=== PATIENT | female | born 1975 | race Caucasian/White ===

== ENCOUNTER 2016-11-11 17:57 | Inpatient (IN) | payer OTHER ==
[2016-11-11] MEDS ORDERED: IOPAMIDOL 370 (76%) 100 ML VIAL IV ONE (17:58)
[2016-11-11 19:33] LABS: ABSOLUTE NEUTROPHIL COUNT 5.4 K/mm3 (1.8-7.7); BASO # 0.1 K/mm3 (0.0-0.2); EOS # 0.6 (0.0-0.5); HEMATOCRIT 34.6 % (37.0-47.0); HEMOGLOBIN 11.2 gm/l (12.0-16.0); IMM NEUT% 0.4 % (0-1); LYMPH # 3.1 (1.0-4.8); LYMPH % 31.8 % (15-45); MEAN CELL VOLUME 79.4 fl (81.0-99.0); MEAN CORPUSCULAR HEMOGLOBIN 25.7 pg (27.0-31.0); MEAN CORPUSCULAR HGB CONC 32.4 g/dl (33.0-37.0); MEAN PLATELET VOLUME 9.7 fl (7.4-10.4); MONO # 0.6 (0.0-0.8); MONO % 5.7 % (4-12); NEUT % 55.1 % (43-75); PLATELET COUNT 399 K/mm3 (130-400); RED CELL DISTRIBUTION WIDTH 13.4 % (11.5-14.5)
[2016-11-11 19:44] LABS: ALB/GLOB RATIO 1.1 (>1.0); ALBUMIN 3.6 gm/dL (3.5-5.7); CALCIUM 9.3 mg/dL (8.6-10.3)
[2016-11-11 20:11] LABS: URINE BILIRUBIN NEGATIVE (NEGATIVE); URINE BLOOD TRACE (NEGATIVE); URINE GLUCOSE (UA) 3+ (NEGATIVE); URINE LEUKOCYTE ESTERASE TRACE (NEGATIVE); URINE NITRITE NEGATIVE (NEGATIVE); URINE PROTEIN NEGATIVE (NEGATIVE); URINE UROBILINOGEN NORMAL (0-1 mg/dl)
[2016-11-11 20:12] LABS: URINE APPEARANCE HAZY; URINE COLOR YELLOW
[2016-11-11 20:20] LABS: URINE RBC 0 /hpf
[2016-11-11 20:21] LABS: URINE BACTERIA 1+
[2016-11-11 20:40] LABS: ACETONE,SERUM NEGATIVE (NEGATIVE)
[2016-11-11 20:54] LABS: VENOUS BLOOD GAS BASE EXCESS 1.8 mmol/L (-2.0-2.0); VENOUS BLOOD GAS HCO3 26.1 mmol/L (22.0-27.0)
[2016-11-11] MEDS ORDERED: SODIUM CHLORIDE 0.9% 1,000 ML ONE (20:59)
[2016-11-11] MEDS ORDERED: INSULIN REGULAR HUMAN (DOSE) 100 UNITS/1 ML ONE (21:00)
[2016-11-11] MEDS ORDERED: ONDANSETRON 4 MG/2ML 2 ML VIAL ONE (21:13)
[2016-11-11] MEDS ORDERED: HYDROMORPHONE HCL 1 MG/ML SYRINGE ONE ×2 (21:13→23:02)
[2016-11-11] MEDS ORDERED: INSULIN REGULAR HUMAN (DOSE) 100 UNITS in SODIUM CHLORIDE 0.9% 99 ML IV PRN (21:15)
[2016-11-11 21:16] LABS: LIPASE 15 U/L (11-82)
[2016-11-11 23:53] VITALS: BMI 31.0
[2016-11-11] MEDS ORDERED: PNEUMOCOCCAL 23-VAL P-SAC VAC 0.5 ML VIAL IM V ONE (23:57)
[2016-11-11] MEDS ORDERED: FLU VACC 2016-17 (36MO-64Y)/PF 60 MCG/0.5 ML SYRINGE IM V ONE (23:57)
[2016-11-12] MEDS ORDERED: BLISTEX LIPSTICK 1 EACH TP PRN (01:07)
[2016-11-12] MEDS ORDERED: MENTHOL/CETYLPYRD 1 EACH LOZENGE PO PRN (01:07)
[2016-11-12] MEDS ORDERED: MAGNESIUM HYDROXIDE 30 ML UDCUP PO PRN (01:07)
[2016-11-12] MEDS ORDERED: ACETAMINOPHEN 325 MG TABLET PO PRN (01:07)
[2016-11-12] MEDS ORDERED: SODIUM CHLORIDE 0.9% 100 ML IV PRN (01:07)
[2016-11-12] MEDS ORDERED: SODIUM CHLORIDE 0.9% 1,000 ML IV SCH (01:15)
[2016-11-12] MEDS ORDERED: CEFTRIAXONE 1 GRAM DUPLEX 50 ML IV ONE (02:15)
[2016-11-12] MEDS ORDERED: PUMP TUBING ONE (02:17)
[2016-11-12] MEDS: SODIUM CHLOR 0.45%/KCL 20 MEQ 1,000 ML IV SCH ×2 (02:40→12:48)
[2016-11-12] MEDS: CEFTRIAXONE 1 GRAM DUPLEX 1 G in Premix (D5W) 50 ml 1 EACH IV SCH (02:41)
[2016-11-12] MEDS: ENOXAPARIN SODIUM 40 MG/0.4 ML SYRINGE SUB-Q SCH (02:41)
[2016-11-12] MEDS: OXYCODONE HCL 5 MG TABLET PO PRN (02:42)
[2016-11-12] MEDS: GUAIFENESIN 600 MG TABLET.DR PO SCH ×3 (03:24→21:19)
[2016-11-12] MEDS: ONDANSETRON 4 MG/2ML 2 ML VIAL IV PRN (06:42)
--- NOTE | 2016-11-12 06:54 | CT ---
Exam Type: ABD/PELVIS W/ CON Date and Time: 11/11/2016 9:15 PM Clinical information: Recent surgery with failed drainage from the wound. Comparison: 09/14/2016. Procedure: Imaging device: [employer] Aquilion [address] scanner 1 mm axial images were obtained through the abdomen and pelvis. Stacked reconstructed 3, 4 and 5 mm images were photographed in the axial coronal and sagittal planes. No oral contrast was utilized for this examination. 100 ml of Isovue-370 was injected intravenously. Exam: with intravenous contrast. FINDINGS: Lung bases: Minimal bibasilar atelectasis is observed. Liver: the liver is homogeneous with no discrete abnormality visualized. No definite findings of biliary dilatation are observed. Spleen: The spleen is homogeneous and does not appear to be enlarged. Gallbladder: Surgically absent. Pancreas: Normal without enlargement or evidence of adjacent inflammatory changes. Adrenal glands: Normal without enlargement or evidence of adjacent inflammatory changes. Abdominal aorta: The aorta is of normal caliber and appears to be without significant atherosclerotic disease. Kidneys: The kidneys appear to be symmetric in size with no perinephric inflammatory changes are identified. No current findings of hydronephrosis are seen. Bowel structures: There are postsurgical changes with bowel suture seen within the region of the proximal sigmoid colon. Distal to the suture, there is thickening of the colonic wall extending to the patient's rectum. No evidence of obstruction is visualized. There is evidence of infiltration and inflammatory stranding within the central pelvic mesentery which is new since prior examination. No definite focal fluid collection or evidence of free air is visualized. There is what appears to be an abdominal incision site located at the midline with inflammatory stranding observed as well as multiple foci of air. This may reflect wound infection though no discrete fluid collection or abscess is visualized. Appendix: Not well visualized. Bladder: The bladder is of normal contour. No wall thickening or significant distention is observed. Hernia: The central abdominal wall musculature is difficult to evaluate due to the inflammatory stranding present. Adenopathy: No significant enlarged adenopathy is visualized. Osseous structures: No discrete osseous abnormalities are identified. Pelvic structures: No discrete pelvic abnormalities are visualized in this examination. IMPRESSION: 1. Evidence of a midline incision within the abdomen and pelvis with inflammatory stranding and foci of free air within the subcutaneous tissues suggesting inflammation/infection. No focal fluid collection is evident to suggest abscess formation. 2. Postsurgical changes within the pelvis with bowel suture within the region of the proximal sigmoid colon suggesting bowel resection. There is thickening of the distal sigmoid colon and rectum beyond the surgical level suggesting findings of focal colitis. Some inflammatory stranding of the mesenteric fat within the pelvis is also observed though no focal fluid collection or evidence of free air is observed. 3. Prior cholecystectomy. 4. Nonvisualization of the appendix. The findings were called to the emergency room at 2150 hours, 11/11/2016, by [facility] radiology.
[2016-11-12 06:55] LABS: ABSOLUTE NEUTROPHIL COUNT 4.4 K/mm3 (1.8-7.7); BASO # 0.1 K/mm3 (0.0-0.2); BASO % 0.7 % (0.2-1.0); EOS # 0.7 (0.0-0.5); EOS % 7.9 % (0.9-2.9); HEMATOCRIT 30.8 % (37.0-47.0); HEMOGLOBIN 9.8 gm/l (12.0-16.0); IMM NEUT% 0.1 % (0-1); LYMPH # 3.2 (1.0-4.8); LYMPH % 35.7 % (15-45); MEAN CELL VOLUME 80.2 fl (81.0-99.0); MEAN CORPUSCULAR HEMOGLOBIN 25.5 pg (27.0-31.0); MEAN CORPUSCULAR HGB CONC 31.8 g/dl (33.0-37.0); MEAN PLATELET VOLUME 9.8 fl (7.4-10.4); MONO # 0.5 (0.0-0.8); MONO % 5.7 % (4-12); NEUT % 49.9 % (43-75); PLATELET COUNT 323 K/mm3 (130-400); RED CELL DISTRIBUTION WIDTH 13.5 % (11.5-14.5)
[2016-11-12 07:14] LABS: CALCIUM 8.3 mg/dL (8.6-10.3)
[2016-11-12] MEDS: INSULIN ASPART (DOSE) 100 UNITS/1 ML SUB-Q PRN ×4 (09:06→21:40)
[2016-11-12] MEDS: ATORVASTATIN CALCIUM 10 MG TABLET PO SCH (09:53)
[2016-11-12] MEDS: LISINOPRIL 10 MG TABLET PO SCH (09:54)
[2016-11-12] MEDS: ASPIRIN (ENTERIC COATED) 81 MG TABLET.EC PO SCH (09:54)
[2016-11-12] MEDS: DOCUSATE SODIUM 100 MG CAPSULE PO SCH ×2 (09:54→21:20)
[2016-11-12] MEDS: GABAPENTIN 300 MG CAPSULE PO SCH ×3 (09:55→21:19)
[2016-11-12] MEDS ORDERED: SODIUM CHLORIDE 500 IRRIG BOT 500 ML IR ONE (09:58)
--- NOTE | 2016-11-12 13:21 | HP ---
GIGI ODOM [facility] [id number] DATE OF : 1975 DATE OF ADMISSION: 11/12/2016 IDENTIFICATION: Ms. Odom is a 41-year-old followed by Lyndon Montez, nurse practitioner. CHIEF COMPLAINT: Abdominal wound dehiscence. HISTORY OF PRESENT ILLNESS: Ms. Odom has surgery for a colovesical fistula on 10/17/2016. This was done at [facility]. Her postoperative course was complicated by ileus and she did not discharge from [facility] until 11/02/2016. She had seen her surgeon last 11/07/16, and he did open part of the wound to allow a seroma to drain. Then today, during a coughing spell, she had an upper portion of the wound open. There has been some yellowish green drainage with a foul odor, and she has had persistent nausea and vomiting today. She came to the emergency department where she was evaluated and had CT scan which does demonstrate that the wound is only superficial. However, she was markedly hyperglycemic and had evidence of a urinary tract infection, therefore she was referred to the Hospitalist service. Additionally, she reports that she has had cough and chills for about 3 days. Cough is nonproductive. REVIEW OF SYSTEMS: HEENT: No headache, lightheadedness, or loss of consciousness. No problems with ears, eyes, nose, or throat. Respiratory: Nonproductive cough, mild dyspnea. Cardiac: No chest pain, or palpitations. Gastrointestinal: Nausea and vomiting today. No dyspepsia. She was constipated, but got relief with milk of magnesia. No hematochezia, or melena. Genitourinary: She has been having dysuria, slow stream, and urinary frequency. Musculoskeletal: Reports that her legs feel heavy and tried. Constitutional: Chills, but no fever. PAST MEDICAL HISTORY: 1. Diabetes mellitus type 2 with retinopathy. 2. Obesity with body mass index of 31 kg/m2. 3. Diverticulosis with recurrent diverticulitis. PAST SURGICAL HISTORY: 1. Hysterectomy. 2. Appendectomy. 3. Cholecystectomy. 4. Partial colon resection for diverticulosis. 5. Repair of colovesical fistula on 10/17/2016 at [facility]. ALLERGIES: REPORTED TO HYDROCODONE WHICH GAVE HER HIVES. CURRENT MEDICATIONS: 1. Oxycodone 5 mg by mouth every 6 hours. 2. Tramadol 50 mg by mouth every 6 hours. 3. Metformin 500 mg by mouth twice a day. 4. Lisinopril 10 mg by mouth daily. 5. Aspirin 81 mg by mouth daily. 6. Insulin glargine 20 units subcutaneous at bedtime. 7. Gabapentin 300 mg by mouth three times a day. 8. Atorvastatin 20 mg by mouth daily. HABITS: No current, or past tobacco, alcohol or drugs. SOCIAL HISTORY: She is a homemaker. She lives with her and 21 and 22-year-old son's in [place]. FAMILY HISTORY: Significant for diabetes, and coronary artery disease. PHYSICAL EXAMINATION: GENERAL: This is a pleasant middle aged woman. She does not appear in any acute distress. VITAL SIGNS: Temperature is 97.9 degrees Fahrenheit. Pulse is 93. Blood pressure is 127/85. Respiratory rate is 16. Oxygen saturation is 96% on room air. HEENT: Pupils equal, round, and reactive. Extraocular muscles intact. Oropharynx is moist. Dentition in good condition. NECK: No adenopathy. CHEST: Clear to auscultation. HEART: Regular with 2/6 systolic murmur. ABDOMEN: Obese, soft, no tenderness. Bowel sounds are normal. The midline incision has on open area about 3 cm long superior to the umbilicus. There is no erythema induration, or exudate. There is also a punctate opening inferior to the umbilicus with clear discharge. EXTREMITIES: Good peripheral pulses. No clubbing, cyanosis or edema. NEUROLOGIC: Nonfocal, alert, and oriented. LABORATORY DATA: White blood cell count is 9.9 with normal differential, hemoglobin and hematocrit 11.2 and 34.6 with microcytic indices, and platelets 399. Venous blood gas is normal. Sodium is 131, potassium 3.8, chloride 95, C02 of 27, BUN 20, creatinine 0.5, and glucose 498. Urinalysis: Specific gravity of 1.020, 3+ glucose, trace blood, trace leukocyte esterase, 5 to 10 white blood cell count, 1+ bacteria. Culture has been set up. Blood culture was obtained and cultures from the surgical wounds were obtained as well. Those do show rare gram-positive cocci. ASSESSMENT: Ms. Odom is a 41-year-old status post abdominal surgery for colovesical fistula with surgical wound dehiscence. There does not appear to be any infection of the surgical wound. She has underlying diabetes type 2 which is uncontrolled and hyperglycemia may contribute to poor wound healing. She has evidence of an acute urinary tract infection with symptoms and bacteruria, and likely acute viral upper respiratory infection causing the coughing that lead to the wound dehiscence. PLAN: 1. Admit to [facility]. 2. Aggressive IV fluid hydration, and insulin treatment to control blood sugar. 3. Clear liquid diet and advance as tolerated. 4. Intravenous ceftriaxone for urinary tract infection. 5. Mucinex for the cough. 6. FULL CODE status. 7. Venous thromboembolism prophylaxis with subcutaneous enoxaparin. 8. Local wound care for the open surgical wound. ANISHA/collin
[2016-11-12] MEDS ORDERED: INSULIN GLARGINE (DOSE) 100 UNITS/ML UNIT SUB-Q SCH (21:00)
[2016-11-13] MEDS: SODIUM CHLOR 0.45%/KCL 20 MEQ 1,000 ML IV SCH ×2 (00:34→02:06)
[2016-11-13] MEDS ORDERED: CEFTRIAXONE 1 GRAM DUPLEX 50 ML IV ONE (01:58)
[2016-11-13] MEDS: ENOXAPARIN SODIUM 40 MG/0.4 ML SYRINGE SUB-Q SCH (02:06)
[2016-11-13] MEDS: CEFTRIAXONE 1 GRAM DUPLEX 1 G in Premix (D5W) 50 ml 1 EACH IV SCH (02:07)
[2016-11-13 06:50] LABS: CALCIUM 8.7 mg/dL (8.6-10.3)
[2016-11-13] MEDS: INSULIN ASPART (DOSE) 100 UNITS/1 ML SUB-Q PRN ×4 (07:48→21:06)
[2016-11-13] MEDS: ONDANSETRON 4 MG/2ML 2 ML VIAL IV PRN (07:48)
[2016-11-13] MEDS: LISINOPRIL 10 MG TABLET PO SCH ×2 (07:49→09:09)
[2016-11-13] MEDS: OXYCODONE HCL 5 MG TABLET PO PRN ×3 (07:49→23:08)
[2016-11-13] MEDS: DOCUSATE SODIUM 100 MG CAPSULE PO SCH ×2 (09:08→20:58)
[2016-11-13] MEDS: GABAPENTIN 300 MG CAPSULE PO SCH ×3 (09:08→20:56)
[2016-11-13] MEDS: GUAIFENESIN 600 MG TABLET.DR PO SCH ×2 (09:08→20:57)
[2016-11-13] MEDS: ATORVASTATIN CALCIUM 10 MG TABLET PO SCH (09:08)
[2016-11-13] MEDS: ASPIRIN (ENTERIC COATED) 81 MG TABLET.EC PO SCH (09:08)
--- NOTE | 2016-11-13 13:08 | PDOC43 ---
- Subjective Chief Complaint: Surgical wound dehiscence. Pain at site of surgical wound, otherwise no new c/o's. Subjective: Reports Tolerating Diet Well, Reports Adequate Oral Intake, Denies Shortness of Breath, Denies Cough, Denies Chest Pain, Denies Nausea, Denies Vomiting, Denies Fever, Denies Chills - Objective Vital Signs Temperature 98.2 F 11/13/16 07:41 Pulse Rate 88 11/13/16 07:41 Respiratory Rate 18 11/13/16 07:41 Blood Pressure 190/113 11/13/16 07:41 O2 Saturation by Pulse Oximetry 97 11/13/16 07:41 Oxygen Delivery Method Room Air Oxygen Flow Rate 0 Intake and Output 11/12/16 11/13/16 11/14/16 06:59 06:59 06:59 Intake Total 4371 Output Total 1750 Balance 2621 General: Alert, Oriented x3, Cooperative, No Acute Distress HEENT: Atraumatic Lungs: Clear to Auscultation Bilaterally Cardiovascular: Regular Rate and Rhythm Abdomen: Soft, Normal Bowel Sounds, Other (3 cm surgical wound dehiscence at superior aspect of surgical wound. Appears clean and superficial. No surrounding redness/warmth. Abd otherwise soft and NT.), No Rebounding, No Involuntary Guarding Extremities: No Edema Laboratory 11/13/16 05:30 11/13/16 11/13/16 11/13/16 11:56 07:36 05:30 Estimated GFR 245 H POC Capillary Glucose 292 H 313 H 11/12/16 11/12/16 11/12/16 21:13 17:48 13:30 Estimated GFR POC Capillary Glucose 293 H 225 H 217 H Current Medications: Current meds reviewed in EMR. - Problems: Assessment/Plan (1) Surgical wound dehiscence Status: Acute Assessment/Plan: Appears to be superficial by CT and PE. Con't wound care and follow. No N/V, diarrhea, abd pain or other concerning sx since admit. Con't elevated BG's concerning for occult process. Follow closely. (2) Diabetes type 2, uncontrolled Status: Chronic Assessment/Plan: With continued poor control. Increase Lantus. Concern for smoldering infection as etiology in spite of lack of other sx- see above. Will follow closely. (3) URI (upper respiratory infection) Qualifiers: URI type: unspecified viral URI Qualifier Code: (J06.9) Acute upper respiratory infection, unspecified Status: Acute Assessment/Plan: Supportive care. (4) UTI (lower urinary tract infection) Status: Acute Assessment/Plan: Cultures pending. Con't rocephin. (5) Obesity (BMI 30.0-34.9) Status: Chronic Assessment/Plan: Complicating all other dx/tx. VTE Prophylaxis: Lovenox. Disposition: Anticipate d/c home in AM.
[2016-11-13] MEDS ORDERED: INSULIN GLARGINE (DOSE) 100 UNITS/ML UNIT SUB-Q SCH (13:09)
[2016-11-13] MEDS: TRAMADOL HCL 50 MG TABLET PO PRN ×2 (16:43→23:32)
[2016-11-14] MEDS: ENOXAPARIN SODIUM 40 MG/0.4 ML SYRINGE SUB-Q SCH (02:08)
[2016-11-14] MEDS: CEFTRIAXONE 1 GRAM DUPLEX 1 G in Premix (D5W) 50 ml 1 EACH IV SCH (02:08)
[2016-11-14] MEDS: OXYCODONE HCL 5 MG TABLET PO PRN (05:58)
[2016-11-14 06:02] LABS: ABSOLUTE NEUTROPHIL COUNT 3.7 K/mm3 (1.8-7.7); BASO % 0.5 % (0.2-1.0); EOS # 0.8 (0.0-0.5); EOS % 9.1 % (0.9-2.9); HEMATOCRIT 31.5 % (37.0-47.0); IMM NEUT% 0.1 % (0-1); LYMPH # 3.4 (1.0-4.8); LYMPH % 40.1 % (15-45); MEAN CORPUSCULAR HGB CONC 31.7 g/dl (33.0-37.0); MEAN PLATELET VOLUME 9.9 fl (7.4-10.4); MONO # 0.5 (0.0-0.8); MONO % 6.3 % (4-12); NEUT % 43.9 % (43-75); PLATELET COUNT 299 K/mm3 (130-400); RED CELL DISTRIBUTION WIDTH 13.6 % (11.5-14.5)
[2016-11-14 06:48] LABS: CALCIUM 9.6 mg/dL (8.6-10.3)
[2016-11-14] MEDS: INSULIN ASPART (DOSE) 100 UNITS/1 ML SUB-Q PRN (07:06)
[2016-11-14 08:20] VITALS: BP 139/88
[2016-11-14] MEDS: GUAIFENESIN 600 MG TABLET.DR PO SCH (08:24)
[2016-11-14] MEDS: ASPIRIN (ENTERIC COATED) 81 MG TABLET.EC PO SCH (08:24)
[2016-11-14] MEDS: GABAPENTIN 300 MG CAPSULE PO SCH (08:24)
[2016-11-14] MEDS: ATORVASTATIN CALCIUM 10 MG TABLET PO SCH (08:24)
[2016-11-14] MEDS: LISINOPRIL 10 MG TABLET PO SCH (08:25)
[2016-11-14] MEDS: DOCUSATE SODIUM 100 MG CAPSULE PO SCH (08:25)
[2016-11-14] MEDS ORDERED: INSULIN GLARGINE (DOSE) 100 UNITS/ML UNIT SUB-Q SCH (10:06)
--- NOTE | 2016-11-14 12:02 | DS ---
Tanja Odom ADMIT DATE: 11/12/2016 DISCHARGE DATE: 11/14/2016 ADMIT DIAGNOSES: 1. Superficial wound dehiscence. 2. Underlying diabetes mellitus type 2 with poor control, longstanding. 3. Abnormal urinalysis upon admission concerning for urinary tract infection. 4. Viral upper respiratory infection. DISCHARGE DIAGNOSES: 1. Superficial wound dehiscence, this is actually not acute, this was opened on Sunday by her surgeon and was not an acute issue it turns out. 2. Poorly controlled diabetes at poorly controlled baseline. 3. No evidence of urinary tract infection as urine culture did not grow out any pathogens. ADMIT HISTORY AND PHYSICAL: Please see Dr. Whitehead's note for details. Briefly, Ms. Odom is a 41-year-old female who underwent a bowel resection for what turned out to be diverticulitis on 10/17/2016. Her hospitalization turned out to be fairly prolonged and she was not discharged until 10/31/2016. She presented to our emergency room with concern about an acute dehiscence of the wound after coughing. She was admitted to the hospitalist service for conservative care. It turns out, however, that story was not completely accurate. I did discuss her case with the regular surgeon, Dr. Pantoja and she actually has been seen by them twice a week. The wound dehiscence that she complained of is actually not acute as he opened up a seroma on Sunday one day prior to her presentation to our emergency room. She has been seen multiple times in the emergency room up there and at various other hospitals for the same thing it turns out. Dr. Pantoja does not feel that she requires further hospitalization after talking to him. HOSPITAL COURSE: Prior to the above history being obtained, she was admitted to the hospitalist service. She was treated with wound care. Given the holiday weekend it was difficult to get information on her. On the morning of discharge we were finally able to contact her regular surgeon and get the above history. Patient remained stable. She is eating and drinking well. She has had no fevers, no chills. We have elected to discharge her with continued daily wound packing/dressing changes with plans for follow up with Dr. Pantoja as scheduled tomorrow 11/15/2016. DISCHARGE MEDICATIONS: As prior to admit as follows: 1. Aspirin 81 mg by mouth daily. 2. Lipitor 20 mg by mouth daily. 3. Neurontin 300 mg by mouth three times daily. 4. Lantus 20 units subcutaneous daily. 5. Ultram 50 mg by mouth every 6 hours. 6. Lisinopril 10 mg by mouth daily. 7. Metformin 500 mg by mouth twice daily. 8. Oxycodone 5 mg by mouth every 6 hours. DISCHARGE FOLLOW UP: With Dr. Pantoja 11/15/2016 as discussed. JOB: [id number] CC: Dr. Pantoja
== END 2016-11-14 10:50 | disposition home or self-care (01) | DRG 921 ==
LOC: ED 17:57 → MS 22:40
PROVIDERS: ADMIT Family Medicine; ATTEND Family Medicine
DX: T81.31XA Disruption of external operation (surgical) wound, not elsewhere classified, initial encounter (principal); E11.65 Type 2 diabetes mellitus with hyperglycemia; E66.9 Obesity, unspecified; Z68.31 Body mass index [BMI] 31.0-31.9, adult; J06.9 Acute upper respiratory infection, unspecified; Z79.84 Long term (current) use of oral hypoglycemic drugs

== ENCOUNTER 2016-11-20 16:24 | Emergency (ER) | payer OTHER ==
[2016-11-20] MEDS ORDERED: IOPAMIDOL 300 (61%) 150 ML VIAL IV ONE (16:25)
[2016-11-20 21:07] LABS: ALB/GLOB RATIO 1.1 (>1.0); ALBUMIN 3.7 gm/dL (3.5-5.7); CALCIUM 9.5 mg/dL (8.6-10.3)
[2016-11-20 21:12] LABS: ABSOLUTE NEUTROPHIL COUNT 4.9 K/mm3 (1.8-7.7); BASO # 0.1 K/mm3 (0.0-0.2); BASO % 0.8 % (0.2-1.0); EOS # 0.5 (0.0-0.5); EOS % 4.9 % (0.9-2.9); HEMATOCRIT 37.1 % (37.0-47.0); IMM NEUT% 0.3 % (0-1); LYMPH # 3.7 (1.0-4.8); LYMPH % 37.8 % (15-45); MEAN CELL VOLUME 81.4 fl (81.0-99.0); MEAN CORPUSCULAR HEMOGLOBIN 26.3 pg (27.0-31.0); MEAN CORPUSCULAR HGB CONC 32.3 g/dl (33.0-37.0); MEAN PLATELET VOLUME 10.3 fl (7.4-10.4); MONO # 0.6 (0.0-0.8); NEUT % 50.2 % (43-75); PLATELET COUNT 366 K/mm3 (130-400); RED CELL DISTRIBUTION WIDTH 13.6 % (11.5-14.5)
[2016-11-20] MEDS ORDERED: AMOX 875 MG/CLAV 125 MG 1 EACH TABLET ONE (23:51)
--- NOTE | 2016-11-21 08:45 | CT ---
ABD/PELVIS W/ CON COMPARISON: CT abdomen and pelvis 11/11/2016 HISTORY: Cutaneous fistula with drainage. 3 days of fevers, chills, increased foul smelling drainage from her abdominal incision. 3 cm incision from her surgery for diverticulitis 10/17/2016. Past surgical history: Hysterectomy, appendectomy, cholecystectomy. Technique: Intravenous injection 125 mL Isovue 300. Using a [employer] Aquilion [address] scanner, images were obtained from the diaphragm to the floor the pelvis. An automated dose reduction technique was used to minimize patient radiation dose. Dose information: CTDIvol (mGy): 15.80 DLP(mGycm): 865.80 FINDINGS: Lung bases: Normal. Inferior mediastinum and heart: Normal. Liver: Normal. Gallbladder: Cholecystectomy. Bile ducts: Normal. Pancreas: Normal. Spleen: Normal. Adrenal glands: Normal. Kidneys: Normal. Ureters: Normal Urinary bladder: Normal. Uterus and adnexa: Hysterectomy Blood vessels: Normal Lymph nodes: Normal Stomach: Normal Duodenum: Normal Small intestine: Normal Appendix: Appendectomy. Colon: Postoperative changes from partial colectomy at the descending-sigmoid colon junction, without without dehiscence or abscess. Abdominal wall and supporting musculature: Midline surgical incision contains numerous suspended air bubbles Bones: Normal IMPRESSION: Infected surgical wound with numerous suspended air bubbles and by physical exam, purulent material discharge compatible with a superficial wound infection/abscess. No abscess The otherwise normal-appearing surgical site, at the junction of the descending and sigmoid colon. Preliminary report by [facility] radiologist Yakelin Petit MD 11/20/2016 at 21:46
--- NOTE | 2016-11-21 09:48 | RAD ---
EXAMINATION : FISTULA OR SINUS TRACT STUDY HISTORY: Abdominal fistula. COMPARISONS: Prior CT scan of the abdomen and pelvis dated 11/20/2016. A fistulogram was performed. 10 mL's of Isovue 300 was injected into a fistula by Dr. Bhakta AP and lateral plain films were obtained. FINDINGS: Injection of the fistula exhibits contrast extending into the subcutaneous preperitoneal soft tissues. No bowel communication is identified. There is no free intra-abdominal air. Please note intraperitoneal extension is currently not visualized. Please note it cannot be excluded with confidence on this exam. Residual CT contrast is noted within the kidneys and proximal collecting system and bladder. The bowel gas pattern is unremarkable. IMPRESSION: Fistulogram findings as described above. Atif the contrast appears to be within the preperitoneal subcutaneous tissues. No obvious intraperitoneal extension is identified however it cannot be excluded with confidence.
== END 2016-11-21 00:15 | disposition home or self-care (01) ==
LOC: ED 16:24
DX: T81.31XA Disruption of external operation (surgical) wound, not elsewhere classified, initial encounter (principal); S31.159A Open bite of abdominal wall, unspecified quadrant without penetration into peritoneal cavity, initial encounter; L02.211 Cutaneous abscess of abdominal wall; L76.82 Other postprocedural complications of skin and subcutaneous tissue; Y83.8 Other surgical procedures as the cause of abnormal reaction of the patient, or of later complication, without mention of misadventure at the time of the procedure; Y92.9 Unspecified place or not applicable
CPT/HCPCS: 83605; 85025; 87040; 87070 ×2; 80053; 87186 ×2; 76080; 74177; 99284 ×2; A9270; Q9967

== ENCOUNTER 2016-11-22 12:01 | Emergency (ER) | payer OTHER ==
[2016-11-22] MEDS ORDERED: OXYCODONE/ACETAMINOPHEN 5/325 MG TABLET ONE (13:05)
[2016-11-22] MEDS ORDERED: INSULIN REGULAR HUMAN (DOSE) 100 UNITS/1 ML ONE (13:06)
[2016-11-22 13:28] LABS: ABSOLUTE NEUTROPHIL COUNT 5.5 K/mm3 (1.8-7.7); BASO # 0.1 K/mm3 (0.0-0.2); BASO % 0.6 % (0.2-1.0); EOS # 0.3 (0.0-0.5); EOS % 3.1 % (0.9-2.9); HEMATOCRIT 37.1 % (37.0-47.0); IMM NEUT% 0.2 % (0-1); LYMPH # 1.9 (1.0-4.8); LYMPH % 23.4 % (15-45); MEAN CELL VOLUME 80.7 fl (81.0-99.0); MEAN CORPUSCULAR HEMOGLOBIN 26.1 pg (27.0-31.0); MEAN CORPUSCULAR HGB CONC 32.3 g/dl (33.0-37.0); MEAN PLATELET VOLUME 10.4 fl (7.4-10.4); MONO # 0.5 (0.0-0.8); MONO % 5.8 % (4-12); NEUT % 66.9 % (43-75); PLATELET COUNT 339 K/mm3 (130-400); RED CELL DISTRIBUTION WIDTH 13.7 % (11.5-14.5)
[2016-11-22 15:54] LABS: ALB/GLOB RATIO 1.2 (>1.0); ALBUMIN 3.7 gm/dL (3.5-5.7); CALCIUM 9.2 mg/dL (8.6-10.3)
== END 2016-11-22 14:08 | disposition home or self-care (01) ==
LOC: ED 12:01
DX: T81.31XA Disruption of external operation (surgical) wound, not elsewhere classified, initial encounter (principal); E11.8 Type 2 diabetes mellitus with unspecified complications; Z79.4 Long term (current) use of insulin; Z79.84 Long term (current) use of oral hypoglycemic drugs; Y83.8 Other surgical procedures as the cause of abnormal reaction of the patient, or of later complication, without mention of misadventure at the time of the procedure; Y92.9 Unspecified place or not applicable
CPT/HCPCS: 85025; 80053; 99283 ×2; 36415; A9270; J1815

== ENCOUNTER 2017-02-04 13:21 | Emergency (ER) | payer OTHER ==
[2017-02-04 15:07] LABS: URINE BILIRUBIN NEGATIVE (NEGATIVE); URINE BLOOD 4+ (NEGATIVE); URINE GLUCOSE (UA) 3+ (NEGATIVE); URINE LEUKOCYTE ESTERASE NEGATIVE (NEGATIVE); URINE NITRITE NEGATIVE (NEGATIVE); URINE PROTEIN NEGATIVE (NEGATIVE); URINE UROBILINOGEN NORMAL (0-1 mg/dl)
[2017-02-04 15:09] LABS: URINE APPEARANCE HAZY; URINE COLOR YELLOW
[2017-02-04 15:11] LABS: HCG,QUALITATIVE URINE NEGATIVE
[2017-02-04 15:20] LABS: URINE BACTERIA RARE; URINE EPITHELIAL CELLS 0-2 /hpf; URINE RBC 50-60 /hpf; URINE WBC 0-2 /hpf
[2017-02-04] MEDS ORDERED: IBUPROFEN 600 MG TABLET ONE (15:48)
[2017-02-04] MEDS ORDERED: MORPHINE SULFATE 4 MG/ML SYRINGE ONE (15:49)
--- NOTE | 2017-02-04 16:28 | RAD ---
ABDOMEN OR KUB COMPARISON: CT abdomen and pelvis, 11/20/2016 HISTORY: Left flank pain. FINDINGS: View: Supine abdomen. Bowel gas pattern: Normal. No evidence of bowel obstruction or constipation. Organomegaly: None. Soft tissue calcification: None. Surgical clips: Right upper quadrant and left lower quadrant. Bones: Normal. IMPRESSION: No acute finding. There are surgical clips from a cholecystectomy in the right upper quadrant and from bowel surgery in the left lower quadrant. No calcification is seen in the left flank. In the pelvis, there are phleboliths.
--- NOTE | 2017-02-04 17:21 | US ---
RENAL LTD/AORTA/BLADDER COMPARISON: Abdomen one view, 02/04/2017. CT abdomen pelvis, 11/20/2016 HISTORY: 41 years old. Left flank pain for 2 days. No history kidney stones. FINDINGS: Left kidney: Normal size, 13.8 x 5.4 x 5.4 cm. Cortical thickness 9.5 mm. Normal echogenicity. Normal resistive index 0.59. No stone, mass, hydronephrosis, or calcification. IMPRESSION: Normal ultrasound of left kidney. The report was sent to the emergency department electronic medical record system, 02/04/2017 at 17:22
== END 2017-02-04 17:49 | disposition home or self-care (01) ==
LOC: ED 13:21
DX: R31.9 Hematuria, unspecified (principal); R10.9 Unspecified abdominal pain; I10 Essential (primary) hypertension; E11.9 Type 2 diabetes mellitus without complications; Z79.4 Long term (current) use of insulin; Z79.84 Long term (current) use of oral hypoglycemic drugs
CPT/HCPCS: 81025; 81001; 74000; 76775; 99283 ×2; 96372; A9270; J2270

== ENCOUNTER 2017-03-09 14:48 | Emergency (ER) | payer OTHER ==
[2017-03-09] MEDS ORDERED: LACTATED RINGERS 1,000 ML ONE ×2 (15:18→16:27)
[2017-03-09 15:19] LABS: SPECIFIC GRAVITY 1.015 (1.001-1.030); URINE BILIRUBIN NEGATIVE (NEGATIVE); URINE BLOOD NEGATIVE (NEGATIVE); URINE GLUCOSE (UA) 3+ (NEGATIVE); URINE LEUKOCYTE ESTERASE NEGATIVE (NEGATIVE); URINE NITRITE NEGATIVE (NEGATIVE); URINE PROTEIN NEGATIVE (NEGATIVE); URINE UROBILINOGEN NORMAL (0-1 mg/dl)
[2017-03-09 15:21] LABS: URINE APPEARANCE CLEAR; URINE COLOR YELLOW
[2017-03-09] MEDS ORDERED: MORPHINE SULFATE 4 MG/ML SYRINGE ONE (15:42)
[2017-03-09] MEDS ORDERED: ONDANSETRON 4 MG/2ML 2 ML VIAL ONE (15:45)
[2017-03-09 15:49] LABS: ABSOLUTE NEUTROPHIL COUNT 5.4 K/mm3 (1.8-7.7); BASO # 0.1 K/mm3 (0.0-0.2); BASO % 0.8 % (0.2-1.0); EOS # 0.2 (0.0-0.5); EOS % 2.2 % (0.9-2.9); HEMATOCRIT 40.4 % (37.0-47.0); HEMOGLOBIN 12.9 gm/l (12.0-16.0); IMM NEUT% 0.3 % (0-1); LYMPH % 32.2 % (15-45); MEAN CELL VOLUME 77.7 fl (81.0-99.0); MEAN CORPUSCULAR HEMOGLOBIN 24.8 pg (27.0-31.0); MEAN CORPUSCULAR HGB CONC 31.9 g/dl (33.0-37.0); MEAN PLATELET VOLUME 10.1 fl (7.4-10.4); MONO # 0.5 (0.0-0.8); MONO % 5.7 % (4-12); NEUT % 58.8 % (43-75); PLATELET COUNT 285 K/mm3 (130-400); RED CELL DISTRIBUTION WIDTH 14.6 % (11.5-14.5)
[2017-03-09 16:05] LABS: ALB/GLOB RATIO 1.1 (>1.0); ALBUMIN 3.8 gm/dL (3.5-5.7); CALCIUM 9.3 mg/dL (8.6-10.3)
[2017-03-09] MEDS ORDERED: INSULIN REGULAR HUMAN (DOSE) 100 UNITS/1 ML ONE ×3 (16:27→16:36)
== END 2017-03-09 21:12 | disposition home or self-care (01) ==
LOC: ED 14:48
DX: E11.65 Type 2 diabetes mellitus with hyperglycemia (principal); R10.9 Unspecified abdominal pain; R74.0 Nonspecific elevation of levels of transaminase and lactic acid dehydrogenase [LDH]; E78.00 Pure hypercholesterolemia, unspecified; Z79.84 Long term (current) use of oral hypoglycemic drugs
CPT/HCPCS: 83605 ×3; 85025; 80053; 81003; 96375 ×2; 99283 ×2; 96374; 96361 ×2; 82962; J2270; J2405; J7120 ×2; J1815 ×3